=== PATIENT | female | born 1965 | race Caucasian/White ===

== ENCOUNTER 2016-06-20 23:48 | Emergency (ER) | payer SELFPAY ==
[2016-06-20 23:57] VITALS: BP 153/91
[2016-06-21] MEDS ORDERED: methylPREDNISolone Sodium Succinate 125 MG/2 ML SDV IVPUSH ONE (00:47)
[2016-06-21] MEDS ORDERED: cefTRIAXone 1 GM in Premix Bag 1 BAG IV ONE (00:47)
--- NOTE | 2016-06-21 00:56 | EDM.PDOC ---
ED HPI GENERAL MEDICAL PROBLEM - General Chief Complaint: ENT Problem Stated Complaint: TROUBLE BREATHING/SORE THROAT Time Seen by Provider: 06/21/16 00:56 - History of Present Illness INITIAL COMMENTS - FREE TEXT/NARRATIVE: HISTORY AND PHYSICAL: History of present illness: Patient is a 50-year-old white female with history of remote thyroid cancer status post thyroidectomy 20 years ago with some vocal cord paralysis and has had intermittent stridor but it's always been related to exertion exclusively she's not had any at rest nor with associated colds or respiratory illnesses prior. She presents tonight with stridor and difficulty breathing that is forcing her to sit up to breathe she states she feels like she needs to extend her chin upward because of the swelling and what she calls this [place] in her neck. There's been no trauma she denies fever chills or has had ill children at home. But as stated prior she has never had an episode of this nature with any associated illness. Review of systems: As per history of present illness and below otherwise all systems reviewed and negative. Past medical history: As per history of present illness and as reviewed below otherwise noncontributory. Surgical history: As per history of present illness and as reviewed below otherwise noncontributory. Social history: No reported history of drug or alcohol abuse. Family history: As per history of present illness and as reviewed below otherwise noncontributory. Physical exam: HEENT: Atraumatic, normocephalic, pupils reactive, negative for conjunctival pallor or scleral icterus, mucous membranes moist, throat injected with no pustular exudates no peritonsillar fullness or uvular deviation, neck supple, nontender, trachea midline. Lungs: Patient is known to have some intermittent stridor on exam there is no wheezing rhonchi or crackles noted, breath sounds equal bilaterally, chest nontender. Heart: S1S2, regular, negative for clicks, rubs, or JVD. Abdomen: Soft, nondistended, nontender. Negative for masses or hepatosplenomegaly. Negative for costovertebral tenderness. Pelvis: Stable nontender. Genitourinary: Deferred. Rectal: Deferred. Extremities: Atraumatic, negative for cords or calf pain. Neurovascular unremarkable. Neuro: Awake, alert, oriented. Cranial nerves II through XII unremarkable. Cerebellum unremarkable. Motor and sensory unremarkable throughout. Exam nonfocal. Diagnostics: Soft tissue neck chest x-ray influenza screen CBC CMP Therapeutics: Normal saline 1 L bolus Solu-Medrol 125 mg IV Rocephin 1 g IV Impression: #1 stridor #2 history of remote thyroid cancer status post thyroidectomy Definitive disposition and diagnosis as appropriate pending reevaluation and review of above. 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: Musculoskeletal History: Reports: None Neurological History: Reports: None Psychiatric History: Reports: None Hematologic History: Reports: None Immunologic History: Reports: None Oncologic (Cancer) History: Reports: Other (see below) 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 Dermatologic History: Reports: Melanoma - Infectious Disease History Infectious Disease History: Reports: None - Past Surgical History HEENT Surgical History: Reports: Adenoidectomy, Tonsillectomy GI Surgical History: Reports: Appendectomy Female Surgical History: Reports: section, Hysterectomy Endocrine Surgical History: Reports: Thyroidectomy Musculoskeletal Surgical History: Reports: Shoulder surgery Social & Family History - Family History Family Medical History: Noncontributory - Tobacco Use Smoking Status *Q: Never Smoker - Caffeine Use Caffeine Use: Reports: Soda - Recreational Drug Use Recreational Drug Use: No ED ROS GENERAL - Review of Systems Review Of Systems: ROS reveals no pertinent complaints other than HPI. ED EXAM, GENERAL - Physical Exam Exam: See Below (See dictation) Course - Vital Signs Text/Narrative:: I had discussion with patient and regarding concerns including epiglottitis amongst other etiologies all of which require higher level of care in diagnostics and potential intervention depending on etiology. patient understands concern and agrees with prompt transfer she remained hemodynamically stable the ER and has not had a status change in any meaningful way she actually has had some slight improvement clinically. I discussed case with Dr. Linder at [facility] was kind enough to accept the patient. The patient will be transferred via ground ambulance ALS Last Recorded V/S: Last Vital Signs Temp 36.3 C 06/20/16 23:55 Pulse 89 06/20/16 23:55 Resp 18 06/20/16 23:55 BP 153/91 H 06/20/16 23:55 Pulse Ox 96 06/20/16 23:55 - Orders/Labs/Meds Orders: Active Orders 24 hr Category Date Time Status Chest 1V Frontal [CR] Stat Exams 06/21/16 00:04 Taken Neck Soft Tissue [CR] Stat Exams 06/21/16 00:47 Ordered INFLUENZA A+B AG SCREEN [RM] Stat Lab 06/21/16 00:04 Uncollected MONONUCLEOSIS SCREEN [CHEM] Stat Lab 06/21/16 00:47 Ordered Sodium Chloride 0.9% [Normal Saline] 1,000 ml Med 06/21/16 01:00 Active IV ASDIRECTED cefTRIAXone [Rocephin in Dextrose,Iso-Osm 1 GM/50 ML] 1 Med 06/21/16 00:47 Active gm Premix Bag 1 bag IV ONETIME Medication Orders Sodium Chloride (Normal Saline) 1,000 mls @ 999 mls/hr IV ASDIRECTED CHRISTI Ceftriaxone Sodium/Dextrose 1 (gm/ Premix) 50 mls @ 100 mls/hr IV ONETIME ONE Stop: 06/21/16 01:16 Meds: Medications Generic Name Dose Route Start Last Admin Trade Name Freq PRN Reason Stop Dose Admin Sodium Chloride 1,000 mls @ 999 mls/hr 06/21/16 01:00 Normal Saline IV ASDIRECTED CHRISTI Ceftriaxone Sodium/Dextrose 1 50 mls @ 100 mls/hr 06/21/16 00:47 gm/ Premix IV 06/21/16 01:16 ONETIME ONE Discontinued Medications Generic Name Dose Route Start Last Admin Trade Name Freq PRN Reason Stop Dose Admin Methylprednisolone Sodium Succinate 125 mg 06/21/16 00:47 Solu-Medrol IVPUSH 06/21/16 00:48 ONETIME ONE Departure - Departure Time of Disposition: 00:55 Disposition: DC/Tfer to Acute Hospital 02 Condition: good Clinical Impression: Stridor Forms: ED Department Discharge - My Orders Last 24 Hours: My Active Orders 06/21/16 00:04 Chest 1V Frontal [CR] Stat INFLUENZA A+B AG SCREEN [RM] Stat 06/21/16 00:47 Neck Soft Tissue [CR] Stat MONONUCLEOSIS SCREEN [CHEM] Stat cefTRIAXone [Rocephin in Dextrose,Iso-Osm 1 GM/50 ML] 1 gm Premix Bag 1 bag IV ONETIME 06/21/16 01:00 Sodium Chloride 0.9% [Normal Saline] 1,000 ml IV ASDIRECTED - Assessment/Plan Last 24 Hours: My Active Orders 06/21/16 00:04 Chest 1V Frontal [CR] Stat INFLUENZA A+B AG SCREEN [RM] Stat 06/21/16 00:47 Neck Soft Tissue [CR] Stat MONONUCLEOSIS SCREEN [CHEM] Stat cefTRIAXone [Rocephin in Dextrose,Iso-Osm 1 GM/50 ML] 1 gm Premix Bag 1 bag IV ONETIME 06/21/16 01:00 Sodium Chloride 0.9% [Normal Saline] 1,000 ml IV ASDIRECTED
[2016-06-21] MEDS ORDERED: LORazepam 2 MG/ML MDV IVPUSH ONE (00:59)
[2016-06-21] MEDS ORDERED: Sodium Chloride 0.9% 1,000 ML IV SCH (01:00)
[2016-06-21 01:31] LABS: CHLORIDE,CL 106 mmol/L (98-110); SODIUM,NA 141 mmol/L (136-146)
--- NOTE | 2016-06-21 15:49 | CR ---
EXAM DATE: 06/20/16 PATIENT'S AGE: 50 Patient: OMAR DIAZ Facility: [place], [place] Site . Site : 1965 Study: XRay Chest [id number] 12:45:41 AM Ordering Physician: Doctor Way Final Report: INDICATION: COUGH, RUNNY NOSE, SORE THROAT, DIFFICULTY BREATHING TECHNIQUE: Chest radiograph 1 view COMPARISON: None FINDINGS: Cardiovascular and mediastinum: The cardiac silhouette is normal in appearance and size. Mediastinum is within normal limits. Numerous surgical clips are noted over the thoracic inlet, likely from prior thyroidectomy. Lungs and pleural space: Both lungs are unremarkable in appearance. No sign of pleural effusion. No pneumothorax is seen. Bones and soft tissues: No significant findings. IMPRESSION: 1. No acute cardiopulmonary disease seen. Dictated by: Richard Earl MD @ 06/21/2016 00:48:41 (Electronic Signature) Report Signed by Proxy. JENNIFER
--- NOTE | 2016-06-21 15:51 | CR ---
EXAM DATE: 06/20/16 PATIENT'S AGE: 50 Patient: OMAR DIAZ Facility: [place], [place] Site . Site : 1965 Study: XRay ST Neck [id number] 1:22:21 AM Ordering Physician: Doctor Way Final Report: HISTORY: Throat pain, trouble breathing. FINDINGS: Two soft tissue laterals of the neck demonstrates degenerative changes of the discs and facets within the cervical spine. There are surgical clips seen in the lower anterior neck. The epiglottis and aryepiglottic folds are normal. The tracheal air column is maintained. IMPRESSION: 1. Degenerative changes of the discs and facets within cervical spine. 2. Post operative changes in the anterior lower neck. 3. Normal epiglottis and aryepiglottic folds. Airway is patent. Dictated by Jami Shaikh MD @ 06/21/2016 1:28:39 AM Dictated by: Jami Shaikh MD @ 06/21/2016 01:28:45 (Electronic Signature) Report Signed by Proxy. [facility]ALTH SYSTEMMatt
== END 2016-06-21 01:35 ==
LOC: MW.ED 23:48
DX: R06.1 Stridor (principal); Z85.850 Personal history of malignant neoplasm of thyroid; E89.0 Postprocedural hypothyroidism; Z85.820 Personal history of malignant melanoma of skin; Z98.890 Other specified postprocedural states; Z90.710 Acquired absence of both cervix and uterus; Z91.040 Latex allergy status; Z79.899 Other long term (current) drug therapy; Z91.041 Radiographic dye allergy status
CPT/HCPCS: 70360; 71010; 80053; 85025; 86308; 87804; 96365; 96375; 99285; J0696; J2060; J2930; J7040; 99284

== ENCOUNTER 2019-03-08 18:58 | Emergency (ER) | payer OTHER ==
--- NOTE | 2019-03-08 19:18 | EDM.PDOC ---
ED HPI GENERAL MEDICAL PROBLEM - General Chief Complaint: Respiratory Problem Stated Complaint: SOB Time Seen by Provider: 03/08/19 19:18 Source of Information: Reports: Patient History Limitations: Reports: No Limitations - History of Present Illness INITIAL COMMENTS - FREE TEXT/NARRATIVE: HISTORY AND PHYSICAL: History of present illness: Patient is a 53-year-old female presents the ED with concern of difficulty breathing. She states she has a history of paralyzed vocal cords so her voice is always hoarse but recently feels like she is having some swelling in her neck that is making it difficulty to breath. She states she did have something similar a few years ago and was sent to [facility] due to concern about her airway. She states she does not feel like her symptoms are this bad and was told if she has something similar to get some steroids. Patient was offered labs and imaging which she declined and is requesting IM steroids at this time. We did concern that it could progress in to something more serious and cause her airway to close. She is aware and understands my concerns the risks but is declining work up for possible admission/transfer. Review of systems: As per history of present illness and below otherwise all systems reviewed and negative. Past medical history: As per history of present illness and as reviewed below otherwise noncontributory. Surgical history: As per history of present illness and as reviewed below otherwise noncontributory. Social history: No reported history of drug or alcohol abuse. Family history: As per history of present illness and as reviewed below otherwise noncontributory. Physical exam: General: Patient sitting comfortably in no acute distress and nontoxic appearing HEENT: Atraumatic, normocephalic, pupils reactive, negative for conjunctival pallor or scleral icterus, mucous membranes moist, throat clear, neck supple, nontender, trachea midline. No meningeal signs. Lungs: Clear to auscultation, breath sounds equal bilaterally, chest nontender. No wheezing or stridor. Heart: S1S2, regular, negative for clicks, rubs, or overt murmur. Abdomen: Soft, nondistended, nontender. Negative for masses or hepatosplenomegaly. Negative for costovertebral tenderness. No rigidity, rebound , guarding. Pelvis: Stable nontender. Genitourinary: Deferred. Rectal: Deferred. Extremities: Atraumatic, negative for cords or calf pain. Neurovascular unremarkable. Neuro: Awake, alert, oriented. Cranial nerves II through XII unremarkable. Cerebellum unremarkable. Motor and sensory unremarkable throughout. Exam nonfocal. Notes: Diagnostics: Declined Therapeutics: Toradol 125mg IM Prescriptions: Prednisone Impression: Shortness of breath Plan: Take medications as instructed Follow up with primary care provider Return to ED as needed as discussed Definitive disposition and diagnosis as appropriate pending reevaluation and review of above. 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: Musculoskeletal History: Reports: None Neurological History: Reports: None Psychiatric History: Reports: None Hematologic History: Reports: None Immunologic History: Reports: None Oncologic (Cancer) History: Reports: Other (See Below) 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 Dermatologic History: Reports: Melanoma - Infectious Disease History Infectious Disease History: Reports: None - Past Surgical History HEENT Surgical History: Reports: Adenoidectomy, Tonsillectomy GI Surgical History: Reports: Appendectomy Female Surgical History: Reports: Section, Hysterectomy Endocrine Surgical History: Reports: Thyroidectomy Musculoskeletal Surgical History: Reports: Shoulder Surgery Social & Family History - Family History Family Medical History: Noncontributory - Tobacco Use Smoking Status *Q: Never Smoker - Caffeine Use Caffeine Use: Reports: Soda - Recreational Drug Use Recreational Drug Use: No ED ROS GENERAL - Review of Systems Review Of Systems: Comprehensive ROS is negative, except as noted in HPI. ED EXAM, GENERAL - Physical Exam Exam: See Below (see dictation) Course - Vital Signs Last Recorded V/S: Last Vital Signs Temp 97.3 F 03/08/19 18:59 Pulse 79 03/08/19 18:59 Resp 16 03/08/19 18:59 BP 123/77 03/08/19 18:59 Pulse Ox 94 L 03/08/19 18:59 - Orders/Labs/Meds Orders: Active Orders 24 hr Category Date Time Status EKG 12 Lead [EKG Documentation Completion] [RC] STAT Care 03/08/19 20:04 Active Meds: Medications Discontinued Medications Generic Name Dose Route Start Last Admin Trade Name Naveed PRN Reason Stop Dose Admin Methylprednisolone Sodium Succinate 125 mg 03/08/19 19:23 03/08/19 19:34 Solu-Medrol IM 03/08/19 19:24 125 mg ONETIME ONE Administration Departure - Departure Time of Disposition: 20:07 Disposition: Home, Self-Care 01 Condition: Good Clinical Impression: Shortness of breath - Discharge Information Referrals: PCP,None [Primary Care Provider] - Forms: ED Department Discharge Additional Instructions: The following information is given to patients seen in the emergency department who are being discharged to home. This information is to outline your options for follow-up care. We provide all patients seen in our emergency department with a follow-up referral. The need for follow-up, as well as the timing and circumstances, are variable depending upon the specifics of your emergency department visit. If you don't have a primary care physician on staff, we will provide you with a referral. We always advise you to contact your personal physician following an emergency department visit to inform them of the circumstance of the visit and for follow-up with them and/or the need for any referrals to a consulting specialist. The emergency department will also refer you to a specialist when appropriate. This referral assures that you have the opportunity for follow-up care with a specialist. All of these measure are taken in an effort to provide you with optimal care, which includes your follow-up. Under all circumstances we always encourage you to contact your private physician who remains a resource for coordinating your care. When calling for follow-up care, please make the office aware that this follow-up is from your recent emergency room visit. If for any reason you are refused follow-up, please contact the [facility] Emergency Department at and asked to speak to the emergency department charge nurse. [facility] [address] [place] [address] [id number] [id number] Take medications as instructed Follow up with primary care provider Return to ED as needed as discussed Sepsis Event Note - Evaluation Sepsis Screening Result: No Definite Risk - Focused Exam Vital Signs: Vital Signs Temp Pulse Resp BP Pulse Ox 03/08/19 18:59 97.3 F 79 16 123/77 94 L Date Exam was Performed: 03/08/19 Time Exam was Performed: 20:07 - My Orders Last 24 Hours: My Active Orders 03/08/19 20:04 EKG 12 Lead [EKG Documentation Completion] [RC] STAT - Assessment/Plan Last 24 Hours: My Active Orders 03/08/19 20:04 EKG 12 Lead [EKG Documentation Completion] [RC] STAT
[2019-03-08] MEDS ORDERED: methylPREDNISolone Sodium Succinate 125 MG/2 ML SDV IM ONE (19:23)
[2019-03-08 20:23] VITALS: BP 110/70; PULSE 61
== END 2019-03-08 20:24 | disposition home or self-care (01) ==
LOC: MW.ED 18:58
DX: R06.02 Shortness of breath (principal); Z91.040 Latex allergy status; Z91.09 Other allergy status, other than to drugs and biological substances
CPT/HCPCS: 93005; 96372; 99284; J2930

== ENCOUNTER 2020-09-22 07:17 | Day surgery (SDC) | payer OTHER ==
[~2020-09-22 07:17] MED LIST: Lactated Ringers 1,000 ML IV SCH; Sodium Chloride 0.9% 10 ML SDV IV PRN; Sodium Chloride 0.9% 10 ML Syringe FLUSH PRN; Sodium Chloride 0.9% 2.5 ML Syringe FLUSH PRN
--- NOTE | 2020-09-22 07:31 | PCM.PREANE ---
Preanesthetic Assessment - Anesthesia/Transfusion/Family Hx Anesthesia History: Prior Anesthesia Without Reaction Transfusion History: No Prior Transfusion(s) - Review of Systems General: No Symptoms Pulmonary: No Symptoms Cardiovascular: No Symptoms Gastrointestinal: No Symptoms Neurological: No Symptoms Other: Reports: None - Physical Assessment NPO Status Date: 09/22/20 NPO Status Time: 00:00 Height: 5 ft 8 in Weight: 159 lb ASA Class: 3 Mental Status: Alert & Oriented x3 Airway Class: Mallampati = 2 Dentition: Reports: Normal Dentition Thyro-Mental Finger Breadths: 3 Mouth Opening Finger Breadths: 3 ROM/Head Extension: Full Lungs: Clear to Auscultation, Normal Respiratory Effort Cardiovascular: Regular Rate, Regular Rhythm - Allergies Allergies/Adverse Reactions: Allergies Allergy/AdvReac Type Severity Reaction Status Date / Time adhesive Allergy Rash Verified 09/19/20 13:20 latex Allergy Rash Verified 03/08/19 19:01 dye Allergy Swelling Uncoded 09/19/20 13:20 - Acknowledgements Anesthesia Type Planned: General Anesthesia Pt an Appropriate Candidate for the Planned Anesthesia: Yes Alternatives and Risks of Anesthesia Discussed w Pt/Guardian: Yes Pt/Guardian Understands and Agrees with Anesthesia Plan: Yes PreAnesthesia Questionnaire HEENT History: Reports: None Cardiovascular History: Reports: Other (See Below) Other Cardiovascular History: hx of Rheumatic fever Respiratory History: Reports: Other (See Below) Other Respiratory History: very hoarse voice from 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 Gastrointestinal History: Reports: None Genitourinary History: Reports: None 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: Musculoskeletal History: Reports: None Neurological History: Reports: None Psychiatric History: Reports: None Endocrine/Metabolic History: Reports: Hypothyroidism Hematologic History: Reports: None Immunologic History: Reports: None Oncologic (Cancer) History: Reports: Cervix, Malignant Melanoma, Thyroid 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 Dermatologic History: Reports: None - Infectious Disease History Infectious Disease History: Reports: None - Past Surgical History Head Surgeries/Procedures: Reports: None HEENT Surgical History: Reports: Adenoidectomy, Eye Surgery, Tonsillectomy Other HEENT Surgeries/Procedures: bilateral tear duct reconstruction Cardiovascular Surgical History: Reports: None Respiratory Surgical History: Reports: None GI Surgical History: Reports: Appendectomy Female Surgical History: Reports: Breast Implant, Section, LEEP Endocrine Surgical History: Reports: Thyroidectomy Neurological Surgical History: Reports: None Musculoskeletal Surgical History: Reports: Shoulder Surgery Oncologic Surgical History: Reports: Other (See Below) Other Oncologic Surgeries/Procedures: LEEP procedure, Thyroidectomy, melanoma removed from left shoulder Dermatological Surgical History: Reports: None - SUBSTANCE USE Tobacco Use Status *Q: Never Tobacco User Recreational Drug Use History: No - HOME MEDS Home Medications: Home Meds Ascorbic Acid [Vitamin C] 100 mg PO DAILY 09/19/20 [History] Cholecalciferol (Vitamin D3) [Vitamin D3] 1,000 unit PO DAILY 09/19/20 [History] Levothyroxine Sodium [Synthroid] 125 mcg PO DAILY 09/19/20 [History] Multivitamin 1 tab PO DAILY 09/19/20 [History] - CURRENT (IN HOUSE) MEDS Current Meds: Current Medications Lactated Ringer's (Ringers, Lactated) 1,000 mls @ 125 mls/hr IV ASDIRECTED CHRISTI Sodium Chloride (Sodium Chloride 0.9% 10 Ml Syringe) 10 ml FLUSH ASDIRECTED PRN PRN Reason: Keep Vein Open Sodium Chloride (Sodium Chloride 0.9% 2.5 Ml Syringe) 2.5 ml FLUSH ASDIRECTED PRN PRN Reason: Keep Vein Open Sodium Chloride (Sodium Chloride 0.9% 10 Ml Syringe) 10 ml FLUSH ASDIRECTED PRN PRN Reason: Keep Vein Open Sodium Chloride (Sodium Chloride 0.9% 2.5 Ml Syringe) 2.5 ml FLUSH ASDIRECTED PRN PRN Reason: Keep Vein Open Sodium Chloride (Sodium Chloride 0.9% 10 Ml Sdv) 10 ml IV ASDIRECTED PRN PRN Reason: IV Use
[2020-09-22] MEDS ORDERED: Propofol 200 MG/20 ML SDV ONE (07:58)
--- NOTE | 2020-09-22 09:29 | PCM.OPNOTE ---
- General Post-Op/Procedure Note Date of Surgery/Procedure: 09/22/20 Operative Procedure(s): Screening colonoscopy Findings: diverticulosis Pre Op Diagnosis: Screening colonoscopy Post-Op Diagnosis: diverticulosis Anesthesia Technique: MAC Primary Surgeon: Carri Black Condition: Good
--- NOTE | 2020-09-22 09:36 | PCM48HPAN ---
Post Anesthesia Note - EVALUATION WITHIN 48HRS OF ANESTHETIC Vital Signs in Normal Range: Yes Patient Participated in Evaluation: Yes Respiratory Function Stable: Yes Airway Patent: Yes Cardiovascular Function Stable: Yes Hydration Status Stable: Yes Pain Control Satisfactory: Yes Nausea and Vomiting Control Satisfactory: Yes Mental Status Recovered: Yes Vital Signs: Last Vital Signs Temp 36.0 C L 09/22/20 07:30 Pulse 55 L 09/22/20 09:30 Resp 14 09/22/20 09:30 BP 84/49 L 09/22/20 09:30 Pulse Ox 97 09/22/20 09:30
--- NOTE | 2020-09-22 09:36 | PCM.POSTAN ---
POST ANESTHESIA ASSESSMENT - MENTAL STATUS Mental Status: Alert, Oriented - VITAL SIGNS Vital Signs: Last Vital Signs Temp 36.0 C L 09/22/20 07:30 Pulse 55 L 09/22/20 09:30 Resp 14 09/22/20 09:30 BP 84/49 L 09/22/20 09:30 Pulse Ox 97 09/22/20 09:30 - RESPIRATORY Respiratory Status: Respiratory Rate WNL, Airway Patent, O2 Saturation Stable - CARDIOVASCULAR CV Status: Pulse Rate WNL, Blood Pressure Stable - GASTROINTESTINAL GI Status: No Symptoms - POST OP HYDRATION Hydration Status: Adequate & Stable
[2020-09-22 09:58] VITALS: BP 117/68; PULSE 59
--- NOTE | 2020-09-22 15:54 | OR ---
SURGEON: CARRI BLACK MD DATE OF PROCEDURE: 09/22/2020 PREOPERATIVE DIAGNOSIS: Screening colonoscopy. POSTOPERATIVE DIAGNOSIS: Diverticulosis. PROCEDURE PERFORMED: Screening colonoscopy. PRIMARY SURGEON: Carir Blcak MD ANESTHESIA: MAC. INSTRUMENT USED: Olympus colonoscope. EXTENT OF EXAM: To the cecum. PREPARATION: Good. LIMITATIONS: None. INDICATIONS FOR EXAMINATION: The patient is a 54-year-old female who presents for a screening colonoscopy. I explained the procedure, expected perioperative course, and the risks. She verbalized understanding and wishes to proceed. PROCEDURE IN DETAIL: The patient was brought to the endoscopy suite and placed in a left lateral decubitus position. A time-out was completed verifying the patient's name, age, date of , allergies, and procedure to be performed. Monitored anesthesia care was induced and continuous oxygen was provided via nasal cannula throughout the procedure. After adequate sedation was achieved, a digital rectal exam was performed. This exam was within normal limits. A well-lubricated colonoscope was inserted in the rectum and advanced under direct visualization to the level of the cecum. The cecum was identified by both visual and anatomic landmarks. A photograph was taken of cecal cap; however, due to looping of the scope more proximally, I was unable to retroflex the scope within the cecum. The scope was fully withdrawn while examining the color, texture, anatomy, and integrity of mucosa from the cecum to the anal canal. The patient was noted to have a few scattered diverticula in the sigmoid colon. A photograph of this was taken. The scope was then brought into the rectum and retroflexed to allow visualization of the anal canal opening. This appeared normal and a photograph was taken. The scope was then straightened out and fully withdrawn. The cecum to anus time was 9 minutes. The patient tolerated the procedure well and was transferred to the PACU in stable condition. ENDOSCOPIC DIAGNOSIS: Diverticulosis. RECOMMENDATIONS: Follow up in clinic in 2 weeks. JORI / LOLIS /[id number]
== END 2020-09-22 10:35 | disposition home or self-care (01) ==
LOC: MW.SDS 07:17
PROVIDERS: ATTEND Surgery
DX: Z12.11 Encounter for screening for malignant neoplasm of colon (principal); K57.30 Diverticulosis of large intestine without perforation or abscess without bleeding; N32.81 Overactive bladder; E03.9 Hypothyroidism, unspecified; Z91.041 Radiographic dye allergy status; Z90.49 Acquired absence of other specified parts of digestive tract; Z98.890 Other specified postprocedural states; Z91.040 Latex allergy status; Z79.890 Hormone replacement therapy
CPT/HCPCS: 45378; J2704; J7120

== ENCOUNTER 2020-10-29 12:47 | Emergency (ER) | payer OTHER ==
[2020-10-29 15:59] VITALS: BP 139/88; PULSE 58
--- NOTE | 2020-10-29 16:27 | EDM.PDOC ---
ED HPI GENERAL MEDICAL PROBLEM - General Chief Complaint: Headache Stated Complaint: HEADACHE/RED EYE Time Seen by Provider: 10/29/20 16:05 Source of Information: Reports: Patient History Limitations: Reports: No Limitations - History of Present Illness INITIAL COMMENTS - FREE TEXT/NARRATIVE: 54-year-old female past medical history active Covid infection status post monoclonal antibody therapy presents for bleeding from left eye. Patient notes that she has had an intense headache particularly on her left side. Woke up and noticed that she had a bloodshot left eye. Denies any histories of trauma. Not currently with headache. Left Eye Pain Score (Numeric/FACES): 4 - Related Data Allergies Allergy/AdvReac Type Severity Reaction Status Date / Time adhesive Allergy Rash Verified 09/19/20 13:20 latex Allergy Rash Verified 03/08/19 19:01 dye Allergy Swelling Uncoded 09/19/20 13:20 Home Meds: Home Meds Ascorbic Acid [Vitamin C] 100 mg PO DAILY 09/19/20 [History] Cholecalciferol (Vitamin D3) [Vitamin D3] 1,000 unit PO DAILY 09/19/20 [History] Levothyroxine Sodium [Synthroid] 125 mcg PO DAILY 09/19/20 [History] Multivitamin 1 tab PO DAILY 09/19/20 [History] Past Medical History HEENT History: Reports: None Cardiovascular History: Reports: Other (See Below) Other Cardiovascular History: hx of Rheumatic fever Respiratory History: Reports: Other (See Below) Other Respiratory History: very hoarse voice from 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 Gastrointestinal History: Reports: None Genitourinary History: Reports: None 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: Musculoskeletal History: Reports: None Neurological History: Reports: None Psychiatric History: Reports: None Endocrine/Metabolic History: Reports: Hypothyroidism Hematologic History: Reports: None Immunologic History: Reports: None Oncologic (Cancer) History: Reports: Cervix, Malignant Melanoma, Thyroid 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 Dermatologic History: Reports: None - Infectious Disease History Infectious Disease History: Reports: None - Past Surgical History Head Surgeries/Procedures: Reports: None HEENT Surgical History: Reports: Adenoidectomy, Eye Surgery, Tonsillectomy Other HEENT Surgeries/Procedures: bilateral tear duct reconstruction Cardiovascular Surgical History: Reports: None Respiratory Surgical History: Reports: None GI Surgical History: Reports: Appendectomy Female Surgical History: Reports: Breast Implant, Section, LEEP Endocrine Surgical History: Reports: Thyroidectomy Neurological Surgical History: Reports: None Musculoskeletal Surgical History: Reports: Shoulder Surgery Oncologic Surgical History: Reports: Other (See Below) Other Oncologic Surgeries/Procedures: LEEP procedure, Thyroidectomy, melanoma removed from left shoulder Dermatological Surgical History: Reports: None Social & Family History - Family History Family Medical History: No Pertinent Family History - Tobacco Use Tobacco Use Status *Q: Never Tobacco User - Caffeine Use Caffeine Use: Reports: Coffee - Recreational Drug Use Recreational Drug Use: No ED ROS GENERAL - Review of Systems Review Of Systems: Comprehensive ROS is negative, except as noted in HPI. ED EXAM, GENERAL - Physical Exam Exam: See Below Exam Limited By: No Limitations General Appearance: Alert, WD/WN, No Apparent Distress Eye Exam: Bilateral Eye: EOMI, PERRL, Other (left lateral subconjunctival hemorrhage ) Ears: Hearing Grossly Normal Throat/Mouth: Normal Voice, No Airway Compromise Head: Atraumatic, Normocephalic Neck: Normal Inspection Respiratory/Chest: No Respiratory Distress, Lungs Clear, Normal Breath Sounds, No Accessory Muscle Use Cardiovascular: Normal Peripheral Pulses, Regular Rate, Rhythm Extremities: Normal Inspection Neurological: Alert, Oriented, Normal Cognition, Normal Gait Psychiatric: Normal Affect, Normal Mood Skin Exam: Warm, Dry, Intact, Normal Color Course - Vital Signs Last Recorded V/S: Last Vital Signs Temp 98.6 F 10/29/20 15:54 Pulse 58 L 10/29/20 15:54 Resp 18 10/29/20 15:54 BP 139/88 10/29/20 15:54 Pulse Ox 98 10/29/20 15:54 - Re-Assessments/Exams Free Text/Narrative Re-Assessment/Exam: 10/29/20 16:30 Patient presents with left subconjunctival hemorrhage. Will discharge with PMD follow-up as needed. Return precautions discussed. Departure - Departure Time of Disposition: 16:26 Disposition: Home, Self-Care 01 Condition: Good Clinical Impression: Subconjunctival hemorrhage Qualifiers: Laterality: left Qualified Code(s): H11.32 - Conjunctival hemorrhage, left eye - Discharge Information Instructions: Subconjunctival Hemorrhage Referrals: PCP,None [Primary Care Provider] - Forms: ED Department Discharge Additional Instructions: The following information is given to patients seen in the emergency department who are being discharged to home. This information is to outline your options for follow-up care. We provide all patients seen in our emergency department with a follow-up referral. The need for follow-up, as well as the timing and circumstances, are variable depending upon the specifics of your emergency department visit. If you don't have a primary care physician on staff, we will provide you with a referral. We always advise you to contact your personal physician following an emergency department visit to inform them of the circumstance of the visit and for follow-up with them and/or the need for any referrals to a consulting specialist. The emergency department will also refer you to a specialist when appropriate. This referral assures that you have the opportunity for follow-up care with a specialist. All of these measure are taken in an effort to provide you with optimal care, which includes your follow-up. Under all circumstances we always encourage you to contact your private physician who remains a resource for coordinating your care. When calling for follow-up care, please make the office aware that this follow-up is from your recent emergency room visit. If for any reason you are refused follow-up, please contact the [facility] Emergency Department at and asked to speak to the emergency department charge nurse. Please follow up with your primary care physician. If you do not have a primary care physician, see below: [facility] [address] [place] [id number] [id number] [facility] [address] [place] [id number] Sepsis Event Note (ED) - Focused Exam Vital Signs: Vital Signs Temp Pulse Resp BP Pulse Ox 10/29/20 15:54 98.6 F 58 L 18 139/88 98
== END 2020-10-29 16:30 | disposition home or self-care (01) ==
LOC: MW.ED 12:47
DX: H11.32 Conjunctival hemorrhage, left eye (principal); E03.9 Hypothyroidism, unspecified; Z79.899 Other long term (current) drug therapy; Z91.040 Latex allergy status; Z91.048 Other nonmedicinal substance allergy status; Z91.041 Radiographic dye allergy status
CPT/HCPCS: 99283

== ENCOUNTER 2021-09-06 04:52 | Emergency (ER) | payer OTHER ==
[2021-09-06] MEDS ORDERED: Sodium Chloride 0.9% 1,000 ML IV ONE (05:16)
[2021-09-06] MEDS ORDERED: Dexamethasone 10 MG/ML SDV IVPUSH ONE (05:16)
[2021-09-06 06:03] LABS: CARBON DIOXIDE,CO2 26.3 mmol/L (21.0-32.0)
[2021-09-06 06:06] LABS: CORONAVIRUS COVID-19 NAA POSITIVE (NEGATIVE); INFLUENZA A NAA NEGATIVE (NEGATIVE); INFLUENZA B NAA NEGATIVE (NEGATIVE)
[2021-09-06 07:23] VITALS: BP 119/62; PULSE 93
== END 2021-09-06 07:23 | disposition home or self-care (01) ==
LOC: MW.ED 04:52
DX: U07.1 COVID-19 (principal); E03.9 Hypothyroidism, unspecified; Z79.899 Other long term (current) drug therapy
CPT/HCPCS: 0240U; 36415; 80053; 84484; 85025; 85379; 93005; 96361; 96374; 99285; J1100; J7030